=== PATIENT | female | born 1955 | race Caucasian/White ===

== ENCOUNTER → 2018-06-13 15:40 | Outpatient (CLI) | payer OTHER, SELFPAY ==
[2018-06-13 16:38] LABS: Add Manual Diff / Slide Review NO; Basophils Percent Auto 0.9 % (0-2); Eosinophils Percent Auto 1.2 % (2-4); Hematocrit 41.4 % (36-46); Hemoglobin 14.6 g/dL (12.0-16.0); Lymphocytes Percent Auto 40.9 % (25-40); Mean Corpuscular HGB Conc 35.2 % (30-36); Mean Corpuscular Hemoglobin 33.1 PG (26-34); Monocytes Percent Auto 6.8 % (3-14); Neutrophils Absolute Auto 2200 /uL (3000-5900); Neutrophils Percent Auto 50.2 % (50-75); Platelet Count 207 X10^3/uL (150-400); White Blood Cell Count 4.4 X10^3/uL (4.5-11.0)
[2018-06-13 17:15] LABS: Alanine Aminotransferase 25 IU/L (9-52); Albumin 4.1 g/dL (3.5-5.0); Albumin Globulin Ratio 1.6 (1.0-2.8); Alkaline Phosphatase 53 U/L (38-126); Aspartate Aminotransferase 27 IU/L (14-36); BUN Creatinine Ratio 23.8 (6-22); Bilirubin Total 0.4 mg/dL (0.2-1.3); Blood Urea Nitrogen 19 mg/dL (7-17); Calcium 9.5 mg/dL (8.4-10.2); Carbon Dioxide 31 mmol/L (22-32); Chloride 103 mmol/L (98-107); Estimated Glomerular Filt Rate > 60.0 mL/min (>60); Globulin 2.5 g/dL (1.7-4.1); Glucose 91 mg/dL (80-110); HEMOLYSIS < 15 (0-50); Potassium 3.7 mmol/L (3.4-5.1); Sodium 142 mmol/L (137-145); Total Protein 6.6 g/dL (6.3-8.2)
[2018-06-13 17:32] LABS: Free T3, Triiodothyronine Free 3.93 pg/mL (2.77-5.27)
[2018-06-13 17:33] LABS: Vitamin D 25 Hydroxy (D3) 97.1 ng/mL (30.0-100.0)
[2018-06-13 17:46] LABS: Thyroid Stimulating Hormone 1.02 uIU/mL (0.47-4.68)
[2018-06-15 15:03] LABS: Estradiol < 15 pg/mL
[2018-06-18 21:49] LABS: Zinc 83 mcg/dL (60-130)
== END ==
PROVIDERS: Visit Provider Naturopath
DX: E03.9 Hypothyroidism, unspecified (principal); N95.1 Menopausal and female climacteric states; E55.9 Vitamin D deficiency, unspecified; E60 Dietary zinc deficiency; E27.49 Other adrenocortical insufficiency
CPT/HCPCS: 36415; 80053; 82306; 82670; 84439; 84443; 84481; 84630; 85025